=== PATIENT | male | born 1950 | race Caucasian/White ===

== ENCOUNTER → 2020-03-01 07:52 | Outpatient (BNVA) | payer MEDICARE, SELFPAY | PROVIDERS: Family Provider Family Medicine; PCP Family Medicine; Visit Provider Urology | DX: R97.20 Elevated prostate specific antigen [PSA] (principal); N50.819 Testicular pain, unspecified; N40.1 Benign prostatic hyperplasia with lower urinary tract symptoms | CPT/HCPCS: 81001; 84153 ==

== ENCOUNTER → 2021-05-01 08:15 | Outpatient (BNVA) | payer MEDICARE, SELFPAY | PROVIDERS: Family Provider Family Medicine; PCP Family Medicine; Visit Provider Nurse Practitioner Family | DX: N40.1 Benign prostatic hyperplasia with lower urinary tract symptoms (principal); R97.20 Elevated prostate specific antigen [PSA]; N50.819 Testicular pain, unspecified | CPT/HCPCS: 81003; 84153 ==

== ENCOUNTER → 2021-07-31 13:03 | Outpatient (BNVA) | payer MEDICARE, SELFPAY | PROVIDERS: Family Provider Family Medicine; PCP Family Medicine; Visit Provider Urology | DX: R97.20 Elevated prostate specific antigen [PSA] (principal); N40.1 Benign prostatic hyperplasia with lower urinary tract symptoms | CPT/HCPCS: 81003; 84153 ==

== ENCOUNTER → 2021-10-31 08:57 | Outpatient (BNVA) | payer MEDICARE, SELFPAY | PROVIDERS: Family Provider Family Medicine; PCP Family Medicine; Visit Provider Internal Medicine Nephrology | DX: E83.49 Other disorders of magnesium metabolism (principal); N18.31 Chronic kidney disease, stage 3a; D63.1 Anemia in chronic kidney disease; N25.81 Secondary hyperparathyroidism of renal origin; Z79.899 Other long term (current) drug therapy; Z94.0 Kidney transplant status | CPT/HCPCS: 80053; 80197; 81000; 82043; 82310; 83735; 83970; 84550; 85025 ==

== ENCOUNTER → 2022-04-30 08:52 | Outpatient (BNVA) | payer MEDICARE, SELFPAY | PROVIDERS: Family Provider Family Medicine; PCP Family Medicine; Visit Provider Family Medicine | DX: Z94.0 Kidney transplant status (principal); E83.49 Other disorders of magnesium metabolism; N18.31 Chronic kidney disease, stage 3a; N25.81 Secondary hyperparathyroidism of renal origin | CPT/HCPCS: 80053; 80197; 81000; 82310; 82570; 83735; 83970; 84156; 84550; 85025 ==

== ENCOUNTER → 2022-07-24 10:03 | Outpatient (BNVA) | payer MEDICARE, SELFPAY | PROVIDERS: Family Provider Family Medicine; PCP Family Medicine; Visit Provider Family Medicine | DX: R97.20 Elevated prostate specific antigen [PSA] (principal) | CPT/HCPCS: 84153 ==

== ENCOUNTER → 2022-07-31 07:42 | Outpatient (BNVA) | payer MEDICARE, SELFPAY | PROVIDERS: Family Provider Family Medicine; PCP Family Medicine; Visit Provider Urology | DX: N40.1 Benign prostatic hyperplasia with lower urinary tract symptoms (principal) | CPT/HCPCS: 81003; 99213 ==

== ENCOUNTER → 2022-09-27 08:52 | Outpatient (BNVA) | payer MEDICARE, SELFPAY | PROVIDERS: Family Provider Family Medicine; PCP Family Medicine; Visit Provider Nurse Practitioner Family | DX: L23.7 Allergic contact dermatitis due to plants, except food (principal); L57.0 Actinic keratosis; Z71.89 Other specified counseling; L85.3 Xerosis cutis; D22.9 Melanocytic nevi, unspecified; L81.4 Other melanin hyperpigmentation; L57.8 Other skin changes due to chronic exposure to nonionizing radiation | CPT/HCPCS: 17000; 17003; 99214 ==

== ENCOUNTER → 2022-10-18 14:48 | Outpatient (BNVA) | payer MEDICARE, SELFPAY | PROVIDERS: Family Provider Family Medicine; PCP Family Medicine; Visit Provider Dermatology | DX: H02.821 Cysts of right upper eyelid (principal); L23.7 Allergic contact dermatitis due to plants, except food; L57.8 Other skin changes due to chronic exposure to nonionizing radiation | CPT/HCPCS: 10061; 99214 ==

== ENCOUNTER → 2022-10-31 15:28 | Outpatient (BNVA) | payer MEDICARE, SELFPAY | PROVIDERS: Family Provider Family Medicine; PCP Family Medicine; Visit Provider Dermatology | DX: I12.9 Hypertensive chronic kidney disease with stage 1 through stage 4 chronic kidney disease, or unspecified chronic kidney disease (principal); N18.31 Chronic kidney disease, stage 3a; E83.49 Other disorders of magnesium metabolism; D63.1 Anemia in chronic kidney disease; N25.81 Secondary hyperparathyroidism of renal origin; Z94.0 Kidney transplant status; Z79.899 Other long term (current) drug therapy; L72.0 Epidermal cyst; L57.0 Actinic keratosis; L82.1 Other seborrheic keratosis; Z85.828 Personal history of other malignant neoplasm of skin | CPT/HCPCS: 17004; 80053; 80061; 80197; 82306; 82310; 82570; 83735; 83970; 84156; 85025; 99213 ==

== ENCOUNTER → 2023-02-21 14:38 | Outpatient (BNVA) | payer MEDICARE, SELFPAY | PROVIDERS: Family Provider Family Medicine; PCP Family Medicine; Visit Provider Dermatology | DX: Z85.828 Personal history of other malignant neoplasm of skin (principal); L57.0 Actinic keratosis; L82.1 Other seborrheic keratosis; L81.4 Other melanin hyperpigmentation; D18.01 Hemangioma of skin and subcutaneous tissue; L72.8 Other follicular cysts of the skin and subcutaneous tissue | CPT/HCPCS: 17000; 99213 ==

== ENCOUNTER → 2023-04-09 13:34 | Outpatient (BNVA) | payer MEDICARE, SELFPAY | PROVIDERS: Family Provider Family Medicine; PCP Family Medicine; Visit Provider Family Medicine | DX: R42 Dizziness and giddiness (principal); I10 Essential (primary) hypertension | CPT/HCPCS: 80053; 83735; 84443; 85025 ==

== ENCOUNTER 2023-05-03 08:40 | Outpatient (CLI) | payer MEDICARE, SELFPAY ==
[2023-05-03 09:27] LABS: Basophils % 0.5 %; Eosinophils # 0.1 10^3/uL (0.0-0.8); Eosinophils % 0.9 %; Hematocrit 45.7 % (37-53); Lymphocytes # 1.9 10^3/uL (0.8-4.8); Lymphocytes % 29.4 %; Mean Corpuscular HGB Conc 32.2 g/dL (30-55); Mean Corpuscular Hemoglobin 29.3 pg (27-33); Mean Corpuscular Volume 91.2 fl (82-101); Mean Platelet Volume 10.5 fL (7.4-10.4); Monocytes # 0.5 10^3/uL (0.2-0.9); Monocytes % 7.9 %; Neutrophils # 4.04 10^3/uL (1.8-7.7); Neutrophils % 61.1 %; Nucleated Red Blood Cells % 0 %; Platelet Count 188 10^3/cmm (157-399); Red Blood Count 5.01 10^6/uL (3.85-5.65); Red Cell Distribution Width 12.7 % (12.1-15.1)
[2023-05-03 09:49] LABS: Alanine Aminotransferase 13 U/L (0-41); Albumin Level 4.5 g/dL (3.5-5.2); Alkaline Phosphatase 77 U/L (40-130); Anion Gap 17.8 (5-19); Aspartate Amino Transferase 15 U/L (0-40); Blood Urea Nitrogen 21 mg/dL (8-23); Calcium 9.2 mg/dL (8.5-10.5); Carbon Dioxide 24 mmol/L (22-29); Chloride 102 mmol/L (98-107); Chol HDL Ratio 5.35 mg/dL (1.0-5.00); Cholesterol 198 mg/dL (0-200); Globulin 2.6 g/dL (1.3-4.6); Glucose 112 mg/dL (65-115); HDL Cholesterol 37 mg/dL (60-100); LDL Cholesterol Calculated 135 mg/dL (50-129); LDL HDL Ratio 3.65 RATIO (0.00-3.22); Magnesium 1.8 mg/dL (1.7-2.3); Osmolality Calculated 292 mOsm/kg (285-295); Potassium 4.8 mmol/L (3.5-5.1); Sodium 139 mmol/L (136-145); Total Bilirubin 0.7 mg/dL (0.15-1.2); Total Protein 7.1 g/dL (6.6-8.7); Triglycerides 129 mg/dL (0-150)
[2023-05-03 09:50] LABS: Creatinine Urine, Random 123 mg/dL (39-259); Microalbum Creatinine Ratio Ur 89 mg/dL (0-20); Microalbumin Random Urine 11 ug/dL (0-20); UPRO/UCREAT Ratio 0.17 mg/mg CR; Urine Creatinine 122 mg/dL (39-259); Urine Protein Random 21 mg/dL
[2023-05-03 09:51] LABS: Calcium 9.2 mg/dL (8.5-10.5)
[2023-05-03 09:56] LABS: Parathyroid Hormone 58.3 pg/mL (15-65)
[2023-05-03 10:40] LABS: 25 Hydroxy Vitamin D 56 ng/mL (30-100)
== END 2023-05-03 08:41 | disposition home or self-care (01) ==
PROVIDERS: PCP Family Medicine; Visit Provider Internal Medicine Nephrology
DX: Z94.0 Kidney transplant status (principal); E55.9 Vitamin D deficiency, unspecified
CPT/HCPCS: 80053; 80061; 80197; 82044; 82306; 82310; 82570; 83735; 83970; 84156; 85025

== ENCOUNTER → 2023-11-04 08:37 | Outpatient (BNVA) | payer MEDICARE, SELFPAY | PROVIDERS: PCP Family Medicine; Visit Provider Family Medicine | DX: Z94.0 Kidney transplant status (principal); Z12.5 Encounter for screening for malignant neoplasm of prostate; R97.20 Elevated prostate specific antigen [PSA] | CPT/HCPCS: 80053; 80061; 80197; 82043; 82306; 82310; 82570; 83735; 83970; 84156; 85025; G0103 ==

== ENCOUNTER 2024-01-17 08:16 | Outpatient (CLI) | payer MEDICARE, SELFPAY ==
[2024-01-17 08:57] LABS: Basophils % 0.5 %; Eosinophils # 0.1 10^3/uL (0.0-0.8); Eosinophils % 2.4 %; Hematocrit 45.2 % (37-53); Lymphocytes # 1.6 10^3/uL (0.8-4.8); Lymphocytes % 26.4 %; Mean Corpuscular HGB Conc 31.9 g/dL (30-55); Mean Corpuscular Hemoglobin 28.9 pg (27-33); Mean Corpuscular Volume 90.8 fl (82-101); Mean Platelet Volume 10.9 fL (7.4-10.4); Monocytes # 0.6 10^3/uL (0.2-0.9); Monocytes % 9.5 %; Neutrophils # 3.57 10^3/uL (1.8-7.7); Neutrophils % 60.9 %; Nucleated Red Blood Cells % 0 %; Platelet Count 175 10^3/cmm (157-399); Red Blood Count 4.98 10^6/uL (3.85-5.65); Red Cell Distribution Width 12.9 % (12.1-15.1); White Blood Count 5.87 10^3/uL (3.29-11.43)
[2024-01-17 09:24] LABS: Albumin Level 4.2 g/dL (3.5-5.2); Anion Gap 15.2 (5-19); Blood Urea Nitrogen 28 mg/dL (8-23); Calcium 8.8 mg/dL (8.5-10.5); Carbon Dioxide 25 mmol/L (22-29); Chloride 103 mmol/L (98-107); Glucose 110 mg/dL (65-115); Phosphorus 2.9 mg/dL (2.5-4.5); Potassium 4.2 mmol/L (3.5-5.1); Sodium 139 mmol/L (136-145)
[2024-01-17 09:29] LABS: Creatinine Urine, Random 154 mg/dL (39-259); Microalbumin Random Urine 17 ug/dL (0-20)
[2024-01-17 09:30] LABS: Parathyroid Hormone 60.9 pg/mL (15-65)
[2024-01-17 09:32] LABS: Microalbum Creatinine Ratio Ur 110 mg/dL (0-20)
== END 2024-01-17 08:17 | disposition home or self-care (01) ==
LOC: LAB 08:21
PROVIDERS: PCP Family Medicine; Visit Provider Registered Nurse
DX: Z94.0 Kidney transplant status (principal)
CPT/HCPCS: 36415; 80069; 82044; 82310; 83970; 85025

== ENCOUNTER → 2024-01-20 07:55 | Outpatient (BNVA) | payer MEDICARE, SELFPAY | PROVIDERS: PCP Family Medicine; Visit Provider Nurse Practitioner Family | DX: L82.0 Inflamed seborrheic keratosis (principal); L57.8 Other skin changes due to chronic exposure to nonionizing radiation; L81.4 Other melanin hyperpigmentation; L57.0 Actinic keratosis; D18.01 Hemangioma of skin and subcutaneous tissue | CPT/HCPCS: 17000; 17110; 99214 ==

== ENCOUNTER → 2024-06-04 10:18 | Outpatient (BNVA) | payer MEDICARE, SELFPAY | PROVIDERS: PCP Family Medicine; Visit Provider Nurse Practitioner Family | DX: B35.1 Tinea unguium (principal); R22.9 Localized swelling, mass and lump, unspecified; L57.8 Other skin changes due to chronic exposure to nonionizing radiation; L81.4 Other melanin hyperpigmentation; D18.01 Hemangioma of skin and subcutaneous tissue; Z08 Encounter for follow-up examination after completed treatment for malignant neoplasm; Z85.828 Personal history of other malignant neoplasm of skin; L57.0 Actinic keratosis; L91.8 Other hypertrophic disorders of the skin; H53.452 Other localized visual field defect, left eye; L60.0 Ingrowing nail | CPT/HCPCS: 11200; 11720; 17004; 99214 ==

== ENCOUNTER 2024-06-12 10:07 | Outpatient (CLI) | payer MEDICARE, SELFPAY ==
--- NOTE | 2024-06-12 10:30 | US_ITS ---
WS: [id number] ULTRASOUND SOFT TISSUES RIGHT calf. HISTORY: RIGHT LEG LUMP COMPARISON: None available. TECHNIQUE: 2-D and color Doppler imaging is submitted. Ultrasound is performed over the palpable abnormality of the RIGHT lower extremity. There is a comple x cystic mass without increased vascularity measuring 0.8 x 0.6 x 0.6 cm. This is just deep to the flores bcutaneous layer. There is a small amount of adjacent fluid. US/US soft tissue/extremity [id number] IMPRESSION: Complex mass measures 0.8 x 0.6 x 0.6 cm in the RIGHT calf. Differential includ es epidermoid cyst, healing hematoma or insect bite. No acute inflammation iden tified.
== END 2024-06-12 10:08 | disposition home or self-care (01) ==
LOC: RAD 10:10
PROVIDERS: PCP Family Medicine; Visit Provider Nurse Practitioner Family
DX: R22.41 Localized swelling, mass and lump, right lower limb (principal)
CPT/HCPCS: 76882

== ENCOUNTER → 2024-06-24 10:36 | Outpatient (BNVA) | payer MEDICARE, SELFPAY | PROVIDERS: PCP Family Medicine; Visit Provider Nurse Practitioner Family | DX: D48.5 Neoplasm of uncertain behavior of skin (principal); L57.0 Actinic keratosis | CPT/HCPCS: 11104; 17000 ==

== ENCOUNTER → 2024-07-06 15:00 | Outpatient (BNVA) | payer MEDICARE, SELFPAY | PROVIDERS: PCP Family Medicine; Visit Provider Nurse Practitioner Family | DX: L57.8 Other skin changes due to chronic exposure to nonionizing radiation (principal); Z08 Encounter for follow-up examination after completed treatment for malignant neoplasm; Z85.828 Personal history of other malignant neoplasm of skin; L57.0 Actinic keratosis | CPT/HCPCS: 17000; 99213 ==

== ENCOUNTER 2024-07-29 08:39 | Outpatient (CLI) | payer MEDICARE, SELFPAY ==
[2024-07-29 09:18] LABS: Basophils % 0.5 %; Eosinophils # 0.1 10^3/uL (0.0-0.8); Eosinophils % 0.9 %; Lymphocytes # 2.3 10^3/uL (0.8-4.8); Lymphocytes % 28.8 %; Mean Corpuscular Hemoglobin 29.1 pg (27-33); Mean Corpuscular Volume 91.1 fl (82-101); Mean Platelet Volume 10.9 fL (7.4-10.4); Monocytes # 0.8 10^3/uL (0.2-0.9); Monocytes % 9.3 %; Neutrophils # 4.89 10^3/uL (1.8-7.7); Neutrophils % 60.3 %; Nucleated Red Blood Cells % 0 %; Platelet Count 204 10^3/cmm (157-399); Red Blood Count 5.05 10^6/uL (3.85-5.65); Red Cell Distribution Width 12.9 % (12.1-15.1)
[2024-07-29 09:36] LABS: Urine Creatinine 143 mg/dL (39-259)
[2024-07-29 09:38] LABS: Calcium 9.2 mg/dL (8.5-10.5)
[2024-07-29 09:40] LABS: UPRO/UCREAT Ratio 0.59 mg/mg CR; Urine Protein Random 85 mg/dL
[2024-07-29 09:41] LABS: Prostate Specific Antigen Scr 1.64 ng/mL (0-4)
[2024-07-29 09:45] LABS: Parathyroid Hormone 56.8 pg/mL (15-65)
[2024-07-29 09:49] LABS: 25 Hydroxy Vitamin D 40 ng/mL (30-100); Albumin Level 4.3 g/dL (3.5-5.2); Anion Gap 15.4 (5-19); Blood Urea Nitrogen 26 mg/dL (8-23); Calcium 9.2 mg/dL (8.5-10.5); Carbon Dioxide 23 mmol/L (22-29); Chloride 108 mmol/L (98-107); Glucose 120 mg/dL (65-115); Phosphorus 2.7 mg/dL (2.5-4.5); Potassium 4.4 mmol/L (3.5-5.1); Sodium 142 mmol/L (136-145)
== END 2024-07-29 08:40 | disposition home or self-care (01) ==
LOC: LAB 08:52
PROVIDERS: PCP Family Medicine; Visit Provider Registered Nurse
DX: N18.31 Chronic kidney disease, stage 3a (principal); Z12.5 Encounter for screening for malignant neoplasm of prostate
CPT/HCPCS: 36415; 80069; 82306; 82310; 82570; 83970; 84156; 85025; G0103

== ENCOUNTER → 2024-09-14 14:37 | Outpatient (BNVA) | payer MEDICARE, SELFPAY | PROVIDERS: PCP Family Medicine; Visit Provider Nurse Practitioner Family | DX: L57.8 Other skin changes due to chronic exposure to nonionizing radiation (principal); L72.0 Epidermal cyst; Z08 Encounter for follow-up examination after completed treatment for malignant neoplasm; Z85.828 Personal history of other malignant neoplasm of skin; L57.0 Actinic keratosis | CPT/HCPCS: 17000; 99213 ==

== ENCOUNTER 2024-10-07 14:01 | Outpatient (CLI) | payer MEDICARE, SELFPAY ==
--- NOTE | 2024-10-07 14:09 | XRR_ITS ---
PROCEDURE INFORMATION: Exam: XR Chest Exam date and time: 10/07/2024 2:13 PM Age: 73 years old Clinical indication: Shortness of breath; Off and on since beginning of September SOB and coughing up phlegm, fatigue; Additional info: New mendiola TECHNIQUE: Imaging protocol: Radiologic exam of the chest. Views: 2 views. COMPARISON: No relevant prior studies available. FINDINGS: Lungs: Scattered scarring in both lungs. No consolidation. Pleural spaces: Unremarkable. No pleural effusion. No pneumothorax. Heart/Mediastinum: Unremarkable. No cardiomegaly. Bones/joints: Unremarkable. XR/XR chest 2V* [id number] IMPRESSION: No acute findings.
== END 2024-10-07 14:02 | disposition home or self-care (01) ==
PROVIDERS: PCP Family Medicine; Visit Provider Family Medicine
DX: R06.09 Other forms of dyspnea (principal); R53.83 Other fatigue; I10 Essential (primary) hypertension; J98.4 Other disorders of lung
CPT/HCPCS: 71046; 80053; 82607; 83735; 84443; 85025; 85651; 86140

== ENCOUNTER 2024-10-21 08:46 | Outpatient (CLI) | payer MEDICARE, SELFPAY ==
--- NOTE | 2024-10-21 | ECG_ITS ---
[facility] Test Date: 2024-10-21 Pat Name: Ayaan Tom Department: Room: Gender: Male Manager Access: : 1950 Requested By: Shawna Hall Order Number: [id number] Nata MD: LACHELLE YOUSIF Interpretive Statements Lung unchanged pre/post procedure; Intraprocedure shortess of breath; Symptoms resoled by discharge NOTE: Please note that this is the electrocardiogram portion of the Lexiscan/Sestamibi stress test. The perfusion scan will be documented separately. DATA: Baseline heart rate was 76 beats per minute. Baseline blood pressure was 155/91 millimeters of mercury. Target heart rate was 148. Maximum heart rate achieved was 95. which was 64 % of the predicted target heart rate. Maximum blood pressure was 159/91 millimeters of mercury. The reason for ending the test was completion of the protocol. The patient did not experience any symptoms. ELECTROCARDIOGRAM: BASELINE: Sinus rhythm. Normal axis. Otherwise, no ST-T changes suggestive of ischemia noted. No arrhythmia noted. EXERCISE: After Lexiscan injection, no ST-T changes suggestive of ischemic noted. No arrhythmia noted. CONCLUSION: Please note due to baseline abnormality of the EKG specificity and sensitivity of the EKG portion of LexiScan MIBI stress test will be low 1. EKG not suggestive of ischemia 2. Lexiscan injection unremarkable. 3. Perfusion scan will be documented separately. Electronically Signed On 11-03-2024 23:14:05 CDT by LACHELLE YOUSIF [email or web address]
--- NOTE | 2024-10-21 08:50 | NMCV_ITS ---
NM sabas perf SPECT r/s* [id number] Ayaan Tom Age: 73 Gender: M : 1950 Exam Date: 10/21/2024 09:50 Ordering Phys: Shawna Hall MD Technologist: BENNETT Bates Exam Location: [facility] Indications: cp STRESS TEST Please see separate stress test report in [facility] for full findings IMAGE PROTOCOL Rest/Stress 1 Lexiscan Day Radiopharmaceutical Dose (mCi) Administration Site Administered by Rest: Tc-99m 10.6 IV BENNETT Bates Sestamibi Stress:Tc-99m 33 IV BENNETT Simons Sestamibi Rest: 21-Oct-2024 60 Discovery 630 Stress: 21-Oct-2024 30 Discovery 630 0.4mg Lexiscan. Images obtained in supine and prone position. SPECT RESULTS Technical Quality: Good Raw Data Analysis: Normal Image Corrections: No attenuation or motion correction applied Summed Stress Score: 2 Summed Rest Score: 1 Summed Difference Score: 1 PERFUSION FINDINGS There is small area of reduced radiotracer uptake seen in the inferior wall. This resolves on prone imaging. This is consistent with attenuation artifact. No evidence of ischemia. FUNCTIONAL RESULTS (calculated via Gated SPECT) Stress Image LV EF (%): 77 Stress EDV (mL):95 TID: 0.94 Stress ESV (mL):22 FUNCTIONAL FINDINGS: There is normal left ventricular systolic function. IMPRESSIONS 1. Small area of attenuation artifact seen in inferior wall. No evidence of ischemia 2. LV systolic function is normal Asa Acosta MD (Electronically Signed) Final Date: 23 Oct 2024 11:54 S
[2024-10-21 08:59] VITALS: BMI 28.3
[2024-10-21] MEDS: regadenoson 0.4 Mg/5 ml Syringe IVP (10:14)
[2024-10-21 10:27] VITALS: BP 134/60; PULSE 84
== END 2024-10-21 08:47 | disposition home or self-care (01) ==
LOC: CDL 08:49
PROVIDERS: PCP Family Medicine; Visit Provider Family Medicine
DX: R07.9 Chest pain, unspecified (principal); I07.1 Rheumatic tricuspid insufficiency; R93.1 Abnormal findings on diagnostic imaging of heart and coronary circulation; R06.09 Other forms of dyspnea
CPT/HCPCS: 36415; 78452; 93017; 93306; 96374; A9500; J2785

== ENCOUNTER 2024-10-21 10:45 | Outpatient (CLI) | payer MEDICARE, SELFPAY ==
--- NOTE | 2024-10-21 10:45 | USCV_ITS ---
Ayaan Tom Age: 73 Gender: M : 1950 Exam Date: 10/21/2024 11:16 Ordering Phys: Shawna Hall MD Technologist: Exam Location: [facility] [place] Indication: sob cp BP: 127 / 72 HR: 84 Rhythm: Sinus Technical Quality: Adequate MEASUREMENTS (Male / Female) Normal Values 2D ECHO LV Diastolic Diameter PLAX 4.4 cm 4.2 - 5.9 / 3.9 - 5.3 cm IVS Diastolic Thickness 1.4 cm 0.6 - 1.0 / 0.6 - 0.9 cm IVS Systolic Thickness 2.0 cm LVPW Diastolic Thickness 1.5 cm 0.6 - 1.0 / 0.6 - 0.9 cm LVPW Systolic Thickness 2.1 cm LVOT Diameter 2.1 cm LV Ejection Fraction 2D Teich 70.1 % LV Ejection Fraction MOD 4C 73.3 % LV Ejection Fraction MOD 2C 76.9 % LV Ejection Fraction 2C AL 77.4 % LA Diameter 2.6 cm RA Systolic Volume 4C AL 34.7 ml RA Systolic Volume 4C MOD 33.4 ml Aorta at Sinotubular Diameter 2.8 cm M-MODE LA Ao Ratio MM 0.9 AV Cusp Separation MM 2.7 cm DOPPLER AV Peak Velocity 144.5 cm/s LVOT Peak Velocity 106.0 cm/s AV Area Cont Eq vti 3.1 cm squared AV Area Cont Eq pk 2.6 cm squared MV Peak Velocity 87.0 cm/s MV Area PHT 2.6 cm squared Mitral E to A Ratio 0.9 TV Peak Velocity 223.0 cm/s TR Peak Velocity 242.0 cm/s TR Peak Gradient 23.4 mmHg TV Peak E Velocity 99.0 cm/s PV Peak Velocity 133.0 cm/s FINDINGS Left Ventricle Normal left ventricular size and systolic function, EF 73%. Mild to moderate concentric left ventricular hypertrophy. No regional wall motion abnormalities. Right Ventricle The right ventricle is normal in size and function. Right Atrium The right atrium is normal in size. Left Atrium The left atrium is normal in size. Mitral Valve No gross abnormalities noted Aortic Valve No gross abnormalities noted Tricuspid Valve [id number] tricuspid valve regurgitation. Pulmonic Valve No gross abnormalities noted Pericardium Normal pericardium without effusion. Aorta The aortic root at the level of the sinuses was measuring 4.05 cm IVC The inferior vena cava appears normal. CONCLUSIONS Normal left ventricular size and systolic function, EF 73%. Mild to moderate concentric left ventricular hypertrophy. No regional wall motion abnormalities. Kdyp-[id number]-huzldhbv tricuspid valve regurgitation. Estimated pulmonary artery peak systolic pressure probably within normal limits, 26 mmHg There is no pericardial effusion. No similar previous studies are available for comparison Dr Rosanna Dash MD [facility] (Electronically Signed) Final Date: 21 Oct 2024 18:08 S
== END 2024-10-21 10:46 | disposition home or self-care (01) ==
LOC: RAD 10-23 08:31
PROVIDERS: PCP Family Medicine; Visit Provider Family Medicine
DX: R06.09 Other forms of dyspnea (principal); I07.1 Rheumatic tricuspid insufficiency; R93.1 Abnormal findings on diagnostic imaging of heart and coronary circulation
CPT/HCPCS: 93306

== ENCOUNTER → 2024-12-14 08:36 | Outpatient (BNVA) | payer MEDICARE, SELFPAY | PROVIDERS: PCP Family Medicine; Visit Provider Nurse Practitioner Family | DX: L57.8 Other skin changes due to chronic exposure to nonionizing radiation (principal); L71.8 Other rosacea; Z08 Encounter for follow-up examination after completed treatment for malignant neoplasm; Z85.828 Personal history of other malignant neoplasm of skin; L57.0 Actinic keratosis | CPT/HCPCS: 17000; 99214 ==

== ENCOUNTER → 2025-01-25 08:03 | Outpatient (BNVA) | payer MEDICARE, SELFPAY | PROVIDERS: PCP Family Medicine; Visit Provider Family Medicine | DX: Z12.5 Encounter for screening for malignant neoplasm of prostate (principal); I10 Essential (primary) hypertension; Z94.0 Kidney transplant status; R97.20 Elevated prostate specific antigen [PSA] | CPT/HCPCS: 80053; 81000; 85025; G0103 ==

== ENCOUNTER 2025-02-02 08:19 | Outpatient (CLI) | payer MEDICARE, SELFPAY ==
[2025-02-02 09:44] LABS: Hematocrit 44.9 % (37-53); Hemoglobin 14.50 g/dL (11.27-16.99); Mean Corpuscular HGB Conc 32.3 g/dL (30-55); Mean Corpuscular Hemoglobin 28.9 pg (27-33); Mean Corpuscular Volume 89.6 fl (82-101); Nucleated Red Blood Cells % 0 %; Platelet Count 218 10^3/cmm (157-399); Red Blood Count 5.01 10^6/uL (3.85-5.65); White Blood Count 6.40 10^3/uL (3.29-11.43)
[2025-02-02 09:57] LABS: Alanine Aminotransferase 13 U/L (0-41); Albumin Level 4.2 g/dL (3.5-5.2); Alkaline Phosphatase 88 U/L (40-130); Anion Gap 14.7 (5-19); Aspartate Amino Transferase 18 U/L (0-40); Blood Urea Nitrogen 25 mg/dL (8-23); Calcium 9.0 mg/dL (8.5-10.5); Carbon Dioxide 23 mmol/L (22-29); Chloride 104 mmol/L (98-107); Globulin 3.5 g/dL (1.3-4.6); Glucose 109 mg/dL (65-115); Magnesium 1.9 mg/dL (1.7-2.3); Osmolality Calculated 289 mOsm/kg (285-295); Potassium 4.7 mmol/L (3.5-5.1); Sodium 137 mmol/L (136-145); Total Protein 7.7 g/dL (6.6-8.7)
[2025-02-02 10:10] LABS: Creatinine Urine, Random 92 mg/dL (39-259)
[2025-02-02 10:12] LABS: Microalbum Creatinine Ratio Ur 196 mg/dL (0-20)
== END 2025-02-02 08:20 | disposition home or self-care (01) ==
PROVIDERS: PCP Family Medicine; Visit Provider Internal Medicine Nephrology
DX: N18.31 Chronic kidney disease, stage 3a (principal); Z94.0 Kidney transplant status
CPT/HCPCS: 36415; 80053; 82044; 83735; 84100; 85025

== ENCOUNTER 2025-02-10 08:17 | Outpatient (CLI) | payer MEDICARE, SELFPAY ==
[2025-02-11 14:45] LABS: Tacrolimus, Highly Sensitive 4.2 mcg/L
== END 2025-02-10 08:18 | disposition home or self-care (01) ==
PROVIDERS: PCP Family Medicine; Visit Provider Registered Nurse
DX: Z94.0 Kidney transplant status (principal)
CPT/HCPCS: 36415; 80197

== ENCOUNTER → 2025-04-14 09:26 | Outpatient (BNVA) | payer MEDICARE, SELFPAY | PROVIDERS: PCP Family Medicine; Visit Provider Family Medicine | DX: Z00.00 Encounter for general adult medical examination without abnormal findings (principal); I10 Essential (primary) hypertension; N50.819 Testicular pain, unspecified | CPT/HCPCS: 80053; 80061; 85025 ==

== ENCOUNTER 2025-04-27 06:34 | Outpatient (CLI) | payer MEDICARE, SELFPAY ==
--- NOTE | 2025-04-27 07:15 | USR_ITS ---
PROCEDURE INFORMATION: Exam: US Scrotum Exam date and time: 04/27/2025 6:54 AM Age: 74 years old Clinical indication: Scrotum pain; Additional info: Chronic testicular pain with acute worsening TECHNIQUE: Imaging protocol: Real-time ultrasound of the scrotum and contents with color Doppler and image documentation. COMPARISON: US soft tissue/extremity [id number] 06/12/2024 10:44 AM FINDINGS: Right testicle: 4.5 x 2.3 x 2.7 cm. No mass. Normal arterial and venous color and pulsed Doppler waveforms. No torsion. Left testicle: 4.6 x 1.6 x 3.3 cm. No mass. Normal arterial and venous color and pulsed Doppler waveforms. No torsion. Epididymides: Right epididymal head 0.6 x 1.8 x 1.1 cm. Left epididymal head 1.0 x 0.8 x 0.8 cm. Scrotum/soft tissues: Small right scrotal hydrocele. Bilateral ductal/spermatic cord prominence, on the left extending into the left testicular mediastinum. US/US scrotum [id number] IMPRESSION: Small right scrotal hydrocele. Bilateral efferent ductal tubular ectasia, a benign condition.
[2025-04-27 07:36] LABS: Hematocrit 42.5 % (37-53); Hemoglobin 13.60 g/dL (11.27-16.99); Mean Corpuscular HGB Conc 32.0 g/dL (30-55); Mean Corpuscular Hemoglobin 28.4 pg (27-33); Mean Corpuscular Volume 88.7 fl (82-101); Nucleated Red Blood Cells % 0 %; Platelet Count 168 10^3/cmm (157-399); Red Blood Count 4.79 10^6/uL (3.85-5.65); White Blood Count 5.37 10^3/uL (3.29-11.43)
[2025-04-27 08:00] LABS: Alanine Aminotransferase 11 U/L (0-41); Albumin Level 4.1 g/dL (3.5-5.2); Alkaline Phosphatase 80 U/L (40-130); Anion Gap 14.6 (5-19); Aspartate Amino Transferase 22 U/L (0-40); Blood Urea Nitrogen 29 mg/dL (8-23); Calcium 8.8 mg/dL (8.5-10.5); Carbon Dioxide 24 mmol/L (22-29); Chloride 109 mmol/L (98-107); Globulin 3.1 g/dL (1.3-4.6); Glucose 113 mg/dL (65-115); Magnesium 1.9 mg/dL (1.7-2.3); Osmolality Calculated 303 mOsm/kg (285-295); Potassium 4.6 mmol/L (3.5-5.1); Sodium 143 mmol/L (136-145); Total Protein 7.2 g/dL (6.6-8.7)
[2025-04-27 08:15] LABS: Creatinine Urine, Random 222 mg/dL (39-259)
[2025-04-27 08:28] LABS: Microalbum Creatinine Ratio Ur 198 mg/dL (0-20)
[2025-04-28 19:20] LABS: Tacrolimus, Highly Sensitive 4.8 mcg/L
== END 2025-04-27 06:35 | disposition home or self-care (01) ==
PROVIDERS: Absent Provider Registered Nurse; PCP Family Medicine; Visit Provider Family Medicine
DX: N50.819 Testicular pain, unspecified (principal); N18.32 Chronic kidney disease, stage 3b; N43.3 Hydrocele, unspecified; N60.42 Mammary duct ectasia of left breast; N60.41 Mammary duct ectasia of right breast
CPT/HCPCS: 36415; 76870; 80053; 80197; 82044; 83735; 84100; 85025